=== PATIENT | female | born 1990 | race Caucasian/White ===

== ENCOUNTER 2017-02-11 09:53 | Emergency (ER) | payer BC ==
[2017-02-11] MEDS ORDERED: Ondansetron ODT TAB* 4 MG PO ONE (10:46)
--- NOTE | 2017-02-11 10:52 | UC ---
UC General HPI - HPI Summary HPI Summary: Patient was out to eat 3 days ago, whe had three drinks and some chicken wings, afterward she started throwing up and has been throwing up for 3 days. she is tachycardic, low grade temp. diffuse abdominal pain. - History of Current Complaint Chief Complaint: UCGeneralIllness Stated Complaint: STOMACH COMPLAINT Time Seen by Provider: 02/11/17 10:29 Hx Obtained From: Patient Onset/Duration: Sudden Onset, Lasting Days Timing: Constant Onset Severity: Moderate Current Severity: Severe Associated Signs & Symptoms: Positive: Abdominal Pain, Dizziness, Decreased Oral Intake, Headache, Nausea - Allergy/Home Medications Allergies/Adverse Reactions: Allergies Allergy/AdvReac Type Severity Reaction Status Date / Time No Known Allergies Allergy Verified 02/11/17 10:19 PMH/Surg Hx/FS Hx/Imm Hx Previously Healthy: Yes - Surgical History Surgical History: Yes Surgery Procedure, Year, and Place: oral surgery spring 2014 - Family History Known Family History: Positive: Hypertension - father - Social History Alcohol Use: Occasionally Substance Use Type: None Smoking Status (MU): Never Smoked Tobacco Review of Systems Constitutional: Chills, Fatigue Skin: Negative Eyes: Negative ENT: Negative Respiratory: Negative Cardiovascular: Negative Gastrointestinal: Abdominal Pain, Vomiting Genitourinary: Negative Motor: Negative Neurovascular: Negative Musculoskeletal: Negative Neurological: Headache Psychological: Negative All Other Systems Reviewed And Are Negative: Yes Physical Exam Triage Information Reviewed: Yes Appearance: Well-Nourished, Ill-Appearing, Pain Distress Vital Signs: Initial Vital Signs Temp 99.5 F 02/11/17 10:14 Pulse 108 02/11/17 10:14 Resp 18 02/11/17 10:14 BP 106/66 02/11/17 10:14 Pulse Ox 100 02/11/17 10:14 Vital Signs Reviewed: Yes Eye Exam: Normal Eyes: Positive: Conjunctiva Clear ENT Exam: Normal ENT: Positive: Normal ENT inspection, Hearing grossly normal, Pharynx normal, TMs normal Dental Exam: Normal Neck exam: Normal Neck: Positive: Supple, Nontender, No Lymphadenopathy Respiratory Exam: Normal Respiratory: Positive: Chest non-tender, Lungs clear, Normal breath sounds Cardiovascular Exam: Normal Cardiovascular: Positive: RRR, No Murmur, Pulses Normal Abdomen Description: Positive: Soft - lower abdominal tenderness, not increased or changed with palpation or motion, neg rebound tenderness or peritoneal irriation Bowel Sounds: Positive: Present Musculoskeletal Exam: Normal Musculoskeletal: Positive: Strength Intact, ROM Intact Neurological Exam: Normal Neurological: Positive: Alert Psychological Exam: Normal Skin Exam: Normal Re-Evaluation - Re-Evaluation First Eval Re-Evaluation Time: 12:00 Change: Unchanged - no improvement with zofran will start iv fluids Second Eval Re-Evaluation Time: 12:23 Change: Improved - 300 mls in with mild improvement Course/Dx - Course Course Of Treatment: hx obtained, exam performed, meds reviewed, disccused plan of care with patient, she is "afraid " of IV's refused one at this time. 1 Zofran given and PO fluid trial performed without success, IV fluids and famotidine given patient is feeling better. Promethazine prescribed for nausea - Differential Dx - Multi-Symptom Provider Diagnoses: nausea. vomiting. dehydration Discharge - Discharge Plan Condition: Stable Disposition: HOME Prescriptions: Promethazine TAB* [Phenergan Tab*] 25 mg PO Q6H PRN #24 tab PRN Reason: Nausea Patient Education Materials: Acute Nausea and Vomiting (ED) Referrals: Mary Irving MD [Primary Care Provider] - Additional Instructions: Take it easy, continue to increase fluid intake and get plenty of rest. Use the prescribed medication as direscted.
[2017-02-11] MEDS ORDERED: NS 0.9% 1000 ML* 1,000 ML IV ONE (11:37)
[2017-02-11] MEDS ORDERED: Famotidine IV* 10 MG/ML 2 ML (20 mg) IV SLOW PU ONE (11:38)
[2017-02-11 13:16] VITALS: BP 105/63
== END 2017-02-11 13:17 | disposition home or self-care (01) ==
LOC: UCCORT 09:53
DX: R11.2 Nausea with vomiting, unspecified (principal); E86.0 Dehydration; R50.9 Fever, unspecified; R00.0 Tachycardia, unspecified; Z32.02 Encounter for pregnancy test, result negative
CPT/HCPCS: 81003; 84702; 96361; 96374; 99212; A9270-GY; G0463

== ENCOUNTER 2019-01-26 09:00 | Emergency (ER) | payer BC, OTHER ==
[2019-01-26 09:34] VITALS: BP 110/71
--- NOTE | 2019-01-26 10:28 | UC ---
Throat Pain/Nasal Norm HPI - HPI Summary HPI Summary: Pt c/o worsening nasal congestion, cough , sinus pressure, TUCKER, and dental pain X 5 days. - History of Current Complaint Chief Complaint: UCRespiratory Stated Complaint: SINUSES Time Seen by Provider: 01/26/19 10:19 Hx Obtained From: Patient Hx Last Menstrual Period: prior to childbirth ?: No Onset/Duration: Gradual Onset, Lasting Days, Still Present Severity: Moderate Pain Intensity: 6 Cough: Nonproductive Associated Signs & Symptoms: Positive: Sinus Discomfort - Epiglottits Risk Factors Epiglottis Risk Factors: Negative - Allergies/Home Medications Allergies/Adverse Reactions: Allergies Allergy/AdvReac Type Severity Reaction Status Date / Time No Known Allergies Allergy Verified 01/26/19 09:29 Home Medications: Home Medications Bcp 1 tab PO DAILY 01/26/19 [History] PMH/Surg Hx/FS Hx/Imm Hx Previously Healthy: Yes - Surgical History Surgical History: Yes Surgery Procedure, Year, and Place: oral surgery spring 2014 - Family History Known Family History: Positive: Hypertension - father - Social History Occupation: Employed Full-time Lives: With Family Alcohol Use: Occasionally Substance Use Type: None Smoking Status (MU): Never Smoked Tobacco Have You Smoked in the Last Year: No - Immunization History Vaccination Up to Date: Yes Review of Systems All Other Systems Reviewed And Are Negative: Yes Constitutional: Positive: Chills, Fatigue Skin: Positive: Negative Eyes: Positive: Negative ENT: Positive: Nasal Discharge, Sinus Congestion, Sinus Pain/Tenderness Respiratory: Positive: Cough Cardiovascular: Positive: Negative Gastrointestinal: Positive: Negative Genitourinary: Positive: Negative Motor: Positive: Negative Neurovascular: Positive: Negative Musculoskeletal: Positive: Myalgia Neurological: Positive: Headache Psychological: Positive: Negative Is Patient Immunocompromised?: No Physical Exam Triage Information Reviewed: Yes Appearance: Ill-Appearing Vital Signs: Initial Vital Signs Temp 98 F 01/26/19 09:30 Pulse 98 01/26/19 09:30 Resp 15 01/26/19 09:30 BP 110/71 01/26/19 09:30 Pulse Ox 100 01/26/19 09:30 Vital Signs Reviewed: Yes Eye Exam: Normal ENT: Positive: Nasal congestion, Sinus tenderness Dental Exam: Normal Neck exam: Normal Respiratory Exam: Normal Cardiovascular Exam: Normal Musculoskeletal Exam: Normal Neurological Exam: Normal Psychological Exam: Normal Skin Exam: Normal Throat Pain/Nasal Course/Dx - Differential Dx/Diagnosis Differential Diagnosis/HQI/PQRI: Influenza, Sinusitis, URI Provider Diagnosis: Sinusitis Discharge - Sign-Out/Discharge Documenting (check all that apply): Patient Departure All imaging exams completed and their final reports reviewed: No Studies - Discharge Plan Condition: Stable Disposition: HOME Prescriptions: Amoxicillin PO (*) [Amoxicillin 875 MG (*)] 875 mg PO Q12H #20 tab guaiFENesin ER TAB [Mucinex*] 600 mg PO Q12H #14 tab.er Patient Education Materials: Sinusitis (ED) Referrals: Mary Irving MD [Primary Care Provider] - If Needed - Billing Disposition and Condition Condition: STABLE Disposition: Home
== END 2019-01-26 10:42 | disposition home or self-care (01) ==
LOC: UCCORT 09:00
DX: J32.9 Chronic sinusitis, unspecified (principal)
CPT/HCPCS: 99212; G0463